=== PATIENT | female | born 1955 | race Caucasian/White ===

== ENCOUNTER → 2021-03-14 | Outpatient (CLI) | payer OTHER ==
[~2021-03-14] MED LIST: AMBIEN5 MG PO; ASPIRIN EC81 MG PO; AVAPRO150 MG PO; CIPRO500 MG PO; DIOVAN160 MG PO; FLONASE 0.05% N16 GM; HYDROCHLOROTHIA25 MG PO; LEXAPRO20 MG PO; VITAMIN D32000 UNI1 PO; ZYRTEC10 M3 PO
== END ==
LOC: KOH-I 11:25
DX: R05 Cough (principal); R50.9 Fever, unspecified
CPT/HCPCS: 71046